=== PATIENT | female | born 1960 | race African-American/Black ===

== ENCOUNTER 2018-03-31 07:37 | Emergency (ER) | payer OTHER ==
[~2018-03-31] VITALS: Ht 157.5 cm; Wt 63.0 kg
[~2018-03-31 07:37] MED LIST: ATOR20TA65 PO; CARI250T PO; DOCU-150; HYDR-3735 PO; HYDR25TA PO; NITR0.4T; tylenol # 3
[2018-03-31 10:00] VITALS: BP 140/90
[2018-03-31] MEDS ORDERED: ONDANSETRON 4MG ODT PO STA (10:15)
== END 2018-03-31 11:23 | disposition left against medical advice (07) ==
LOC: ER 07:37
DX: R10.30 Lower abdominal pain, unspecified (principal); R11.0 Nausea; K21.9 Gastro-esophageal reflux disease without esophagitis; I11.9 Hypertensive heart disease without heart failure; M41.9 Scoliosis, unspecified; M54.30 Sciatica, unspecified side; F12.10 Cannabis abuse, uncomplicated; M79.7 Fibromyalgia; F17.200 Nicotine dependence, unspecified, uncomplicated; F15.10 Other stimulant abuse, uncomplicated; Z90.49 Acquired absence of other specified parts of digestive tract
CPT/HCPCS: 99282; Q0162